=== PATIENT | male | born 1980 | race Hispanic/Latino ===

== ENCOUNTER → 2016-05-01 | Outpatient (CLI) | payer BC ==
--- NOTE | 2016-05-01 19:13 | Diagnostic Imaging Report ---
PROCEDURE: MRI left upper extremity without contrast. TECHNIQUE: Multiplanar, multisequence non contrast-enhanced MRI of the left upper extremity was accomplished. INDICATION: Left wrist pain for 6 weeks. Marker at the site of pain. EXAMINATION: MRI of the left upper extremity 05/01/2016 FINDINGS: There is a marker at the site of pain immediately overlying the radial styloid. Underlying the marker there is diffuse soft tissue edema with fluid surrounding the abductor pollicis longus and the extensor pollicis brevis tendons within the first dorsal compartment of the wrist. The tendons themselves demonstrate irregularity likely due to partial longitudinal split tears. No complete discontinuity is appreciated. The remaining visualized tendons of the wrist appear intact. The carpal tunnel is unremarkable. The flexor retinaculum is unremarkable as well. Osseous structures are normal in appearance with no fractures appreciated. The triangular fibrocartilage contains areas of high signal likely due to degenerative signal although a tear could be missed without intra-articular contrast. Within the carpal bones, multiple tiny hypointense areas are noted likely benign bone islands with small subchondral cysts also noted consistent with degenerative disease. There is a cystic collection within the dorsum of the wrist immediately overlying the distal scaphoid. This could be prominent joint fluid, a small ganglion is not excluded. It measures 15 mm in transverse dimension. IMPRESSION: 1. Findings within the first compartment of the wrist most consistent with De Quervain's tenosynovitis. Longitudinal split tears of the tendons in the first compartment as described above are also noted without discontinuity. 2. The remaining wrist demonstrates diffuse chronic changes as described above. 3. Cystic collection dorsum of the wrist possibly focal joint fluid versus a ganglion; correlate with symptoms and physical examination. Dictated by: Dictated on workstation # [id number]
--- NOTE | 2016-05-01 19:26 | Diagnostic Imaging Report ---
INDICATION: Pain in the wrist and also within the hand towards the thumb region. EXAMINATION: MRI of the left hand without contrast, 05/01/2016. FINDINGS: Nonspecific artifact is noted with susceptibility artifact noted at the fourth digit perhaps to due to previous injury or foreign body. This somewhat obscures evaluation of that region. The remaining osseous structures demonstrate no gross acute abnormalities. There is edema noted in the first compartment of the wrist, please see the separate wrist MRI for further evaluation of that region. Within the hand, itself, the soft tissues and visualized tendons appear intact. There is a T2 hyperintensity within the third metacarpal head which could represent a degenerative finding such as a subchondral cyst. It has a benign appearance. IMPRESSION: 1. No acute abnormality within the visualized hand with some limitations of the fourth digit, as described above. 2. Please see the separate report of the wrist MRI report for a description of the abnormality in the first compartment of the wrist. Dictated by: Dictated on workstation # [id number]
== END ==
LOC: RAD 17:15
DX: M25.532 Pain in left wrist (principal)
CPT/HCPCS: 73218; 73221